=== PATIENT | female | born 1945 | race American Indian/Alaskan Native ===

== ENCOUNTER 2017-05-26 12:22 | Inpatient (IN) | payer MEDICARE ==
[2017-05-26] MEDS ORDERED: APRESOLINE IV ONE (14:15)
--- NOTE | 2017-05-26 19:15 | History and Physical Report ---
History of Present Illness Date of admission: 05/26/17 13:04 Chief complaint: My bleed pressure is high but i feel fine History of present illness: 71 YO Female with HTN, Hypothyroidism, OA admitted directly to hospitalist service at the request of Dr. Bingham. Pt seen and evaluated by PCP in his office and found keshav have hypertensive emergency and instructed to f/u at [facility]. Pt seen and evaluated upon arrival and found to have systolic BP of 257/93. Pt denies fever, chills, CP, Palpitations, NINO, falls, trauma, medication noncompliance, BRBPR, unintentional weight loss, night sweats. Past History Past Medical History: arthritis, hypertension, hypothyroidism Past Surgical History: Other (Uterine fibroid surgery) Social history: single. denies: smoking, alcohol abuse, prescription drug abuse , IV drug use Family history: diabetes, hypertension Medications and Allergies Allergies Allergy/AdvReac Type Severity Reaction Status Date / Time acetaminophen [From Tylenol] AdvReac Swelling,RA Unverified 05/26/17 13:07 Home Medications Medication Instructions Recorded Confirmed Last Taken Type Aspirin EC [Aspirin Enteric Coated 81 mg PO QDAY 05/26/17 05/26/17 05/25/17 18: 00 History TAB] Carvedilol [Coreg] 12.5 mg PO BID 05/26/17 05/26/17 05/25/17 18:00 History 12.5 mg Losartan [Cozaar] 100 mg PO QDAY 05/26/17 05/26/17 05/25/17 18:00 History 100 mg Active Meds: Active Medications Carvedilol (Coreg) 12.5 mg PO BID [facility] Review of Systems Constitutional: no weight loss, no weight gain, no fever, no chills Ears, nose, mouth and throat: no ear pain, no ear discharge, no tinnitis, no decreased hearing, no nose pain, no nasal congestion, no nasal discharge Breasts: no change in shape, no swelling, no mass Cardiovascular: no chest pain, no orthopnea, no palpitations, no rapid/ irregular heart beat, no edema, no syncope Respiratory: no cough, no cough with sputum, no excessive sputum, no hemoptysis , no shortness of breath Gastrointestinal: no nausea, no vomiting, no diarrhea, no constipation, no change in bowel habits, no hematemesis Genitourinary Female: no dysmenorrhea, no pelvic pain, no flank pain, no menorrhagia, no dysuria, no urinary frequency, no urgency Rectal: no pain, no incontinence, no bleeding Musculoskeletal: no neck stiffness, no neck pain, no shooting arm pain, no arm numbness/tingling, no low back pain Integumentary: no rash, no pruritis, no redness, no sores, no wounds, no jaundice Neurological: no head injury, no weakness, no parathesias, no numbness, no tingling, no seizures, no syncope Psychiatric: no anxiety, no memory loss, no change in sleep habits, no sleep disturbances, no insomnia, no hypersomnia Endocrine: no cold intolerance, no heat intolerance, no polyphagia, no excessive thirst, no polydipsia, no polyuria Hematologic/Lymphatic: no easy bruising, no easy bleeding Allergic/Immunologic: no urticaria, no allergic rhinitis, no wheezing Exam - Constitutional Vitals: Temp Pulse Resp BP Pulse Ox 98.8 F 75 16 216/86 100 05/26/17 13:37 05/26/17 15:53 05/26/17 13:37 05/26/17 15:53 05/26/17 14:37 General appearance: Present: mild distress - EENT Eyes: Present: PERRL ENT: hearing intact, clear oral mucosa - Neck Neck: Present: supple, normal ROM - Respiratory Respiratory effort: normal Respiratory: bilateral: CTA - Cardiovascular Heart Sounds: Present: S1 & S2. Absent: rub, click - Extremities Extremities: pulses symmetrical, No edema Peripheral Pulses: within normal limits - Abdominal General gastrointestinal: Present: soft, non-tender, non-distended, normal bowel sounds Female genitourinary: Present: normal - Integumentary Integumentary: Present: clear, warm, dry - Musculoskeletal Musculoskeletal: generalized weakness - Psychiatric Psychiatric: appropriate mood/affect, intact judgment & insight - Neurologic Neurologic: CNII-XII intact, moves all extremities Assessment and Plan - Patient Problems (1) Hypertensive emergency without congestive heart failure Current Visit: Yes Status: Acute Plan to address problem: Monitor bp q shift, hydralazine therapy, resume antihypertensive therapy, Goal systolic overnight systolic between 200-210. (2) Hypothyroid Current Visit: Yes Status: Acute Qualifiers: Hypothyroidism type: H Plan to address problem: continue current therapy, thyroid panel, supportive care. (3) Arthritis Current Visit: Yes Status: Acute Plan to address problem: supportive care, (4) DVT prophylaxis Current Visit: Yes Status: Acute
[2017-05-26] MEDS: COREG PO SCH (21:41)
[2017-05-27] MEDS ORDERED: DULCOLAX PR PRN (02:46)
[2017-05-27] MEDS ORDERED: PROVENTIL IH PRN (02:46)
[2017-05-27] MEDS ORDERED: ZOFRAN IV PRN (02:46)
[2017-05-27] MEDS ORDERED: MILK OF MAGNESIA PO PRN (02:46)
[2017-05-27] MEDS ORDERED: TYLENOL PO PRN (02:46)
[2017-05-27] MEDS: COREG PO SCH ×2 (09:59→17:55)
[2017-05-27] MEDS: PEPCID PO SCH ×2 (09:59→21:23)
[2017-05-27] MEDS ORDERED: APRESOLINE IV ONE (13:20)
--- NOTE | 2017-05-27 15:04 | Progress Note ---
Assessment and Plan - Patient Problems (1) Hypertensive emergency Current Visit: Yes Status: Acute Plan to address problem: Added Hydralazine 50 q 8 and Norvasc 10 mg po qd.BPn still high (2) Hypokalemia Current Visit: Yes Status: Acute Plan to address problem: K of 2.9 supplemented (3) DVT prophylaxis Current Visit: Yes Status: Acute Plan to address problem: On Lovenox 40 sq q24 Subjective Date of service: 05/27/17 Principal diagnosis: HTN emergency Interval history: Symptomaticsllly better.BP persists in Higher range of 200/97 mm Hg Objective - Constitutional Vitals: Vital Signs - 12hr 05/27/17 05/27/17 05/27/17 05:00 08:20 08:48 Temperature 98.6 F 97.9 F Pulse Rate 66 62 Respiratory 18 18 Rate Blood Pressure Blood Pressure 210/57 202/59 [Right] O2 Sat by Pulse 100 99 97 Oximetry 05/27/17 05/27/17 05/27/17 09:59 10:00 13:39 Temperature Pulse Rate 62 51 L Respiratory 18 Rate Blood Pressure 202/59 211/80 Blood Pressure [Right] O2 Sat by Pulse 98 Oximetry General appearance: Present: no acute distress, well-nourished - EENT Eyes: PERRL, EOM intact ENT: hearing intact, clear oral mucosa Ears: bilateral: normal - Neck Neck: supple, normal ROM - Respiratory Respiratory effort: normal Respiratory: bilateral: CTA - Breasts Breasts: normal - Cardiovascular Heart rate: 76 Rhythm: regular Heart Sounds: Present: S1 & S2. Absent: gallop, rub Extremities: pulses intact, No edema, normal color, Full ROM - Gastrointestinal General gastrointestinal: Present: soft, non-tender, non-distended, normal bowel sounds Rectal Exam: deferred - Genitourinary Female genitourinary: normal - Integumentary Integumentary: clear, warm, dry - Musculoskeletal Musculoskeletal: 1, strength equal bilaterally - Neurologic Neurologic: moves all extremities - Psychiatric Psychiatric: memory intact, appropriate mood/affect, intact judgment & insight - Allied health notes Allied health notes reviewed: nursing, case management - Labs CBC & Chem 7: 05/27/17 15:27 05/28/17 04:07
[2017-05-27] MEDS ORDERED: NON-FORMULARY (Losartan [Cozaar] 100 MG) PO SCH (15:15)
[2017-05-27 16:33] LABS: Basophils % (Auto) 1.1 % (0.0-1.8); Eosinophils % (Auto) 2.9 % (0.0-4.3); Hematocrit 39.5 % (30.3-42.9); Hemoglobin 13.2 gm/dl (10.1-14.3); Mean Corpuscular HGB Conc 33 % (30-34); Mean Corpuscular Hemoglobin 31 pg (28-32); Mean Corpuscular Volume 94 fl (79-97); Platelet Count 301 K/mm3 (140-440); Red Blood Count 4.21 M/mm3 (3.65-5.03); Red Cell Distribution Width 14.9 % (13.2-15.2); White Blood Count 4.6 K/mm3 (4.5-11.0)
[2017-05-27 16:52] LABS: Alanine Aminotransferase 19 units/L (7-56); Albumin 4.2 g/dL (3.9-5); Albumin/Globulin Ratio 1.1 %; Alkaline Phosphatase 92 units/L (35-129); Anion Gap 19 mmol/L; BUN/Creatinine Ratio 24.44; Blood Urea Nitrogen 22 mg/dL (7-17); Calcium 9.2 mg/dL (8.4-10.2); Carbon Dioxide 24 mmol/L (22-30); Chloride 102.3 mmol/L (98-107); Glucose 125 mg/dL (65-100); Sodium 142 mmol/L (137-145); Total Protein 7.9 g/dL (6.3-8.2)
[2017-05-27 16:55] LABS: Potassium 2.9 mmol/L (3.6-5.0)
[2017-05-27] MEDS: APRESOLINE PO SCH ×2 (17:08→23:46)
[2017-05-27] MEDS: NORVASC PO SCH (17:09)
[2017-05-27] MEDS: HALFPRIN EC PO SCH (17:10)
[2017-05-27] MEDS: COZAAR PO SCH (17:10)
[2017-05-27] MEDS: K-DUR PO SCH ×2 (19:54→23:57)
[2017-05-28] MEDS: K-DUR PO SCH (03:36)
[2017-05-28 05:06] LABS: Anion Gap 17 mmol/L; BUN/Creatinine Ratio 18.88; Blood Urea Nitrogen 17 mg/dL (7-17); Calcium 8.7 mg/dL (8.4-10.2); Carbon Dioxide 23 mmol/L (22-30); Chloride 103.8 mmol/L (98-107); Glucose 111 mg/dL (65-100); Potassium 3.7 mmol/L (3.6-5.0); Sodium 140 mmol/L (137-145)
[2017-05-28] MEDS: APRESOLINE PO SCH ×2 (05:45→13:57)
[2017-05-28] MEDS: NORVASC PO SCH (09:47)
[2017-05-28] MEDS: PEPCID PO SCH (09:50)
[2017-05-28] MEDS: HALFPRIN EC PO SCH (09:50)
[2017-05-28] MEDS: COZAAR PO SCH (09:50)
[2017-05-28] MEDS: COREG PO SCH (10:00)
--- NOTE | 2017-05-28 11:59 | Discharge Summary ---
Providers - Providers Date of Admission: 05/26/17 13:04 Attending physician: OSORIO RODRIGUEZ MD Primary care physician: LEXIE BINGHAM Hospitalization Hospital course: 71 YO Female with HTN, Hypothyroidism, OA admitted directly to hospitalist service at the request of Dr. Bingham. Pt seen and evaluated by PCP in his office and found to have hypertensive emergency and instructed to f/u at [facility]. She was admitted for hypertensive urgency, her blood pressure medications were optimized , she'll also noted to have low potassium for which it was repleted. She clinically improved and was discharged home Discharge diagnoses Hypertensive urgency Hypokalemia Disposition: DC-01 TO HOME OR SELFCARE Time spent for discharge: 33 minutes Core Measure Documentation - Palliative Care Palliative Care/ Comfort Measures: Not Applicable - Core Measures Any of the following diagnoses?: none Exam - Constitutional Vitals: Temp Pulse Resp BP Pulse Ox 98.7 F 90 18 134/62 100 05/28/17 09:02 05/28/17 09:50 05/28/17 09:02 05/28/17 09:50 05/28/17 09:02 General appearance: Present: no acute distress, well-nourished - EENT Eyes: Present: PERRL ENT: hearing intact, clear oral mucosa - Neck Neck: Present: supple, normal ROM - Respiratory Respiratory effort: normal Respiratory: bilateral: CTA - Cardiovascular Heart Sounds: Present: S1 & S2. Absent: rub, click - Extremities Extremities: pulses symmetrical, No edema Peripheral Pulses: within normal limits - Abdominal General gastrointestinal: Present: soft, non-tender, non-distended, normal bowel sounds Female genitourinary: Present: normal - Integumentary Integumentary: Present: clear, warm, dry - Musculoskeletal Musculoskeletal: gait normal, strength equal bilaterally - Psychiatric Psychiatric: appropriate mood/affect, intact judgment & insight - Neurologic Neurologic: CNII-XII intact, moves all extremities Plan Follow up with: LEXIE BINGHAM MD [Primary Care Provider] - 7 Days Prescriptions: amLODIPine [Norvasc] 10 mg PO QDAY #30 tablet Aspirin EC [Aspirin Enteric Coated TAB] 81 mg PO QDAY #30 tablet Carvedilol [Coreg] 12.5 mg PO BID #60 tablet hydrALAZINE [Apresoline TAB] 50 mg PO Q8HR 30 Days Losartan [Cozaar] 100 mg PO QDAY #30 tablet
[2017-05-28 13:58] VITALS: BP 160/74
== END 2017-05-28 13:10 | disposition home or self-care (01) | DRG 305 ==
LOC: UNDOADMIN 12:22 → CC2 12:22
PROVIDERS: ADMIT Internal Medicine; ATTEND Internal Medicine
DX: I16.0 Hypertensive urgency (principal); E03.9 Hypothyroidism, unspecified; M19.90 Unspecified osteoarthritis, unspecified site; Z88.8 Allergy status to other drugs, medicaments and biological substances; I10 Essential (primary) hypertension; Z83.3 Family history of diabetes mellitus; Z82.49 Family history of ischemic heart disease and other diseases of the circulatory system; E87.6 Hypokalemia
CPT/HCPCS: 36415; 80048; 80053; 84134; 84439; 84443; 85025; J0360

== ENCOUNTER 2017-08-16 13:36 | Inpatient (IN) | payer MEDICARE ==
--- NOTE | 2017-08-16 14:49 | Cat Scan Report ---
CT HEAD WITHOUT CONTRAST: HISTORY: Stroke. TECHNIQUE: Sequential CT images without contrast. FINDINGS: Moderate hypoattenuation is present throughout the white matter of both cerebral hemispheres which is most consistent with chronic microvascular ischemic disease. Small areas of acute ischemia cannot be excluded. There is no evidence for hemorrhage, mass or extra-axial fluid collection. Chronic lacunar infarcts in the left basal ganglia are stable since 05/31/17. Ventricular size remains within normal limits. The visualized sinuses and mastoid air cells are well-aerated. IMPRESSION: Moderate nonspecific chronic white matter changes. No acute intracranial process is appreciated. If further evaluation is needed cava MRI could be obtained.
[2017-08-16 14:56] LABS: Basophils % (Auto) 0.8 % (0.0-1.8); Eosinophils % (Auto) 2.4 % (0.0-4.3); Hematocrit 29.5 % (30.3-42.9); Hemoglobin 9.8 gm/dl (10.1-14.3); Mean Corpuscular HGB Conc 33 % (30-34); Mean Corpuscular Hemoglobin 30 pg (28-32); Mean Corpuscular Volume 90 fl (79-97); Platelet Count 326 K/mm3 (140-440); Red Blood Count 3.26 M/mm3 (3.65-5.03); Red Cell Distribution Width 15.6 % (13.2-15.2)
[2017-08-16 15:09] LABS: Calcium 8.9 mg/dL (8.4-10.2); Chloride 106.8 mmol/L (98-107)
[2017-08-16 15:10] LABS: INR 1.01 (0.87-1.13)
[2017-08-16 15:11] LABS: Partial Thromboplastin Time 29.2 Sec. (24.2-36.6)
--- NOTE | 2017-08-16 17:40 | Emergency Department Report ---
ED General Adult HPI - General Chief complaint: Weakness Stated complaint: POSSIBLE CVA,WEAKNESS Time Seen by Provider: 08/16/17 17:23 Source: patient, family, EMS (ems notes not available at time of chart dictation), RN notes reviewed, old records reviewed Mode of arrival: Stretcher Limitations: Physical Limitation - History of Present Illness Initial comments: This is a 71-year-old female whom I have evaluated in the past. Her primary care doctor is Dr. Bingham Patient has a past medical history of heart disease status post cardiac bypass, renal insufficiency, stroke with some residual speech deficits, high cholesterol. The patient is brought to the hospital by EMS along with her sister. As per verbal report from the patient's sister, patient was eating earlier on today, and then "spaced out." She reports that the patient got sweaty, diaphoretic and clammy, and that she "stared off into space", and that the patient had worsening slurred speech than baseline. This lasted for a few seconds and then reports resolved. The patient has no complaints at this time. The patient's sister corroborates that the patient is back to baseline. -: Sudden Severity scale (0 -10): 0 Consistency: now resolved Improves with: none Worsens with: none Associated Symptoms: confusion, diaphoresis, weakness - Related Data Home Medications Medication Instructions Recorded Confirmed Last Taken Donepezil HCl 10 mg PO QHS 08/16/17 08/16/17 1 Day Ago ~08/15/17 Previous Rx's Medication Instructions Recorded Last Taken Type Aspirin EC [Aspirin Enteric Coated 81 mg PO QDAY #30 tablet 05/28/17 05/31/17 07 :00 Rx TAB] Carvedilol [Coreg] 12.5 mg PO BID #60 tablet 05/28/17 05/31/17 07:00 Rx Losartan [Cozaar] 100 mg PO QDAY #30 tablet 05/28/17 05/31/17 07:00 Rx amLODIPine [Norvasc] 10 mg PO QDAY #30 tablet 05/28/17 05/31/17 07:00 Rx hydrALAZINE [Apresoline TAB] 50 mg PO Q8HR 30 Days tablet 05/28/17 05/31/17 07: 00 Rx AtorvaSTATin [Lipitor] 80 mg PO QHS #30 tab 06/02/17 Unknown Rx Allergies Allergy/AdvReac Type Severity Reaction Status Date / Time acetaminophen [From Tylenol] AdvReac Swelling,RA Verified 05/27/17 03:03 ED Review of Systems ROS: Stated complaint: POSSIBLE CVA,WEAKNESS Other details as noted in HPI Constitutional: diaphoresis, malaise ENT: denies: epistaxis Respiratory: denies: cough Cardiovascular: denies: chest pain Gastrointestinal: denies: abdominal pain Genitourinary: as per HPI Musculoskeletal: as per HPI Skin: as per HPI Neurological: weakness, confusion Psychiatric: as per HPI ED Past Medical Hx - Past Medical History Previous Medical History?: Yes Hx Hypertension: Yes (1996) Hx CVA: Yes (residual speech/swallowing and walking difficulties) - Surgical History Past Surgical History?: Yes Hx Open Heart Surgery: Yes (CABG @ [facility]) Additional Surgical History: hysterectomy - Social History Smoking Status: Never Smoker Substance Use Type: None - Medications Home Medications: Home Medications Medication Instructions Recorded Confirmed Last Taken Type Aspirin EC [Aspirin Enteric Coated 81 mg PO QDAY #30 tablet 05/28/17 05/31/17 07:00 Rx TAB] Carvedilol [Coreg] 12.5 mg PO BID #60 tablet 05/28/17 05/31/17 05/31/17 07:00 Rx Losartan [Cozaar] 100 mg PO QDAY #30 tablet 05/28/17 05/31/17 05/31/17 07:00 Rx amLODIPine [Norvasc] 10 mg PO QDAY #30 tablet 05/28/17 05/31/17 05/31/17 07:00 Rx hydrALAZINE [Apresoline TAB] 50 mg PO Q8HR 30 Days tablet 05/28/17 05/31/1711/12 07:00 Rx AtorvaSTATin [Lipitor] 80 mg PO QHS #30 tab 06/02/17 Unknown Rx Donepezil HCl 10 mg PO QHS 08/16/17 08/16/17 1 Day Ago History ~08/15/17 ED Physical Exam - General Limitations: Physical Limitation, Other (patient is a poor historian) General appearance: alert, in no apparent distress - Head Head exam: Present: atraumatic, normocephalic - Eye Eye exam: Present: normal appearance, EOMI. Absent: nystagmus - ENT ENT exam: Present: normal exam, normal orophraynx, mucous membranes moist, normal external ear exam - Neck Neck exam: Present: normal inspection, full ROM. Absent: tenderness, meningismus - Respiratory Respiratory exam: Present: normal lung sounds bilaterally. Absent: respiratory distress - Cardiovascular Cardiovascular Exam: Present: regular rate, normal rhythm, normal heart sounds. Absent: systolic murmur, diastolic murmur, rubs, gallop - GI/Abdominal GI/Abdominal exam: Present: soft, normal bowel sounds. Absent: distended, tenderness, guarding, rebound, rigid, pulsatile mass - Rectal Rectal exam: Present: normal inspection, normal rectal tone, heme (-) stool ( Brown stool, guaiac negative) - Extremities Exam Extremities exam: Present: normal inspection, full ROM, normal capillary refill. Absent: pedal edema, joint swelling, calf tenderness - Back Exam Back exam: Present: normal inspection, full ROM. Absent: tenderness, CVA tenderness (R), paraspinal tenderness, vertebral tenderness - Neurological Exam Neurological exam: Present: alert (patient currently has slurred speech, her sister endorses that this is her baseline.), CN II-XII intact, normal gait, other (Extraocular movements intact. Tongue midline. No facial droop. Facial sensation intact to light touch in the V1, V2, V3 distribution bilaterally. 5 and 5 strength in 4 extremities.. Sensation is intact to light touch in 4 extremities.). Absent: oriented X3 (the patient is alert to name, month, does not know the year, she is able to recognize her sister by name), motor sensory deficit - Psychiatric Psychiatric exam: Present: normal affect, normal mood - Skin Skin exam: Present: warm, dry, intact, normal color. Absent: rash ED Course Vital Signs 08/16/17 08/16/17 08/16/17 13:41 14:17 14:28 Temperature 97.8 F Pulse Rate 60 76 Respiratory 16 11 L Rate Blood Pressure 119/69 139/57 Blood Pressure 139/57 [Right] O2 Sat by Pulse 99 100 100 Oximetry 08/16/17 08/16/17 08/16/17 14:30 14:46 15:00 Temperature Pulse Rate 79 77 78 Respiratory 13 12 16 Rate Blood Pressure 139/57 139/57 139/57 Blood Pressure [Right] O2 Sat by Pulse 100 100 100 Oximetry 08/16/17 08/16/17 08/16/17 15:16 15:30 15:46 Temperature Pulse Rate 78 82 79 Respiratory 17 13 13 Rate Blood Pressure 139/57 139/57 139/57 Blood Pressure [Right] O2 Sat by Pulse 100 100 100 Oximetry 08/16/17 08/16/17 08/16/17 16:00 16:16 16:30 Temperature Pulse Rate 84 81 81 Respiratory 12 9 L 12 Rate Blood Pressure 139/57 139/57 139/57 Blood Pressure [Right] O2 Sat by Pulse 100 100 100 Oximetry 08/16/17 08/16/17 08/16/17 16:46 17:00 17:16 Temperature Pulse Rate 80 76 78 Respiratory 12 16 11 L Rate Blood Pressure 139/57 139/57 134/66 Blood Pressure [Right] O2 Sat by Pulse 100 100 100 Oximetry 08/16/17 08/16/17 08/16/17 17:30 17:53 18:01 Temperature Pulse Rate 82 75 Respiratory 24 14 16 Rate Blood Pressure 134/66 139/57 142/55 Blood Pressure [Right] O2 Sat by Pulse 99 100 100 Oximetry 08/16/17 08/16/17 08/16/17 18:15 18:31 18:45 Temperature Pulse Rate 83 87 80 Respiratory 18 13 18 Rate Blood Pressure 134/66 134/66 134/66 Blood Pressure [Right] O2 Sat by Pulse 99 98 100 Oximetry 08/16/17 08/16/17 08/16/17 19:00 19:15 19:31 Temperature Pulse Rate 73 74 75 Respiratory 19 13 17 Rate Blood Pressure 132/66 132/66 132/66 Blood Pressure [Right] O2 Sat by Pulse 99 99 100 Oximetry 08/16/17 08/16/17 08/16/17 19:45 20:00 20:15 Temperature Pulse Rate 79 74 80 Respiratory 16 18 12 Rate Blood Pressure 132/66 138/60 138/60 Blood Pressure [Right] O2 Sat by Pulse 100 97 97 Oximetry 08/16/17 08/16/17 08/16/17 20:27 20:31 20:45 Temperature 98.6 F Pulse Rate 74 74 73 Respiratory 16 9 L 19 Rate Blood Pressure 138/60 138/60 Blood Pressure 138/60 [Right] O2 Sat by Pulse 99 99 99 Oximetry 08/16/17 08/16/17 08/16/17 21:00 21:15 21:31 Temperature Pulse Rate 64 71 57 L Respiratory 20 18 18 Rate Blood Pressure 123/54 123/54 123/54 Blood Pressure [Right] O2 Sat by Pulse 97 100 99 Oximetry - Reevaluation(s) Reevaluation #1: 08/16/17 18:23 Differential diagnosis, including but not limited to: Transient ischemic attack , pneumonia, urinary tract infection, acute coronary syndrome Assessment and plan: 71-year-old female, multiple vascular risk factors, had a cardiac catheterization at this hospital which showed critical lesions, history of CABG recently, history of recent stroke with residual dysarthria, now back to baseline, NIH score of 1 for poor sensorium, not a TPA candidate, with probable transient ischemic attack. Patient is afebrile with reassuring vital signs, laboratory studies appear to be at baseline, patient is chest pain-free, x-ray of the chest is unremarkable, urinalysis is pending, patient has had a slight decline in hemoglobin and hematocrit over the past few months, there is no hematemesis, there is no bright red blood per rectum, and the patient is guaiac-negative from below. Patient will require admission for evaluation for high risk transient ischemic attack. Reevaluation #2: 08/16/17 19:31 Urinalysis suggests urinary tract infection. Antibiotics ordered. Reevaluation #3: 08/16/17 21:35 Patient ready take aspirin this morning. Case presented to the Hospital physician, Dr. Beltrán, she accepts patient for the patient to the medical service. ED Medical Decision Making - Lab Data Result diagrams: 08/16/17 14:41 08/16/17 14:41 - Radiology Data Radiology results: report reviewed, image reviewed interpreted by me: X-ray the chest, interpreted by me: No acute disease, status post median sternotomy Noncontrast CT scan of the brain shows no acute findings, chronic findings noted. Critical care attestation.: If time is entered above; I have spent that time in minutes in the direct care of this critically ill patient, excluding procedure time. ED Disposition Clinical Impression: TIA (transient ischemic attack) Disposition: OP ADMIT IP TO THIS HOSP Is pt being admited?: Yes Does the pt Need Aspirin: Yes Condition: Good
[2017-08-16] MEDS ORDERED: BABY ASPIRIN PO ONE (18:25)
[2017-08-16 18:44] LABS: Bacteria,Urine 2+ /HPF (Negative); Bilirubin,Urine NEG (Negative); Blood,Urine NEG (Negative); Ketones,Urine TR mg/dL (Negative); Leukocyte Esterase,Urine SM (Negative); Mucus,Urine FEW /HPF; Nitrite,Urine POS (Negative); Protein,Urine <15 mg/dL mg/dL (Negative); Urobilinogen,Urine < 2.0 mg/dL (<2.0)
[2017-08-16] MEDS ORDERED: MACROBID PO ONE (19:32)
--- NOTE | 2017-08-16 20:31 | XRay Report ---
FINAL REPORT PROCEDURE: XR CHEST 1V AP TECHNIQUE: Chest radiograph anteroposterior view. CPT 22595 HISTORY: altered mental status, diaphoresis, transient isch COMPARISON: No prior studies are available for comparison. FINDINGS: Heart: Normal. Mediastinum/Vessels: Sternal sutures and surgical clips are identified consistent with previous CABG. Lungs/Pleural space: Normal. Bony thorax: No acute osseous abnormality. Life support devices: None. IMPRESSION: No acute cardiopulmonary abnormality.
[2017-08-16] MEDS ORDERED: REGLAN PO PRN (22:27)
[2017-08-16] MEDS ORDERED: ZOFRAN IV PRN (22:27)
[2017-08-16] MEDS ORDERED: MILK OF MAGNESIA PO PRN (22:27)
[2017-08-16] MEDS ORDERED: DULCOLAX PR PRN (22:27)
[2017-08-16] MEDS ORDERED: SODIUM CHLORIDE FLUSH SYRINGE 10 ML IV PRN (22:27)
[2017-08-16] MEDS ORDERED: PHENERGAN PR PRN (22:27)
--- NOTE | 2017-08-16 22:31 | History and Physical Report ---
History of Present Illness Date of examination: 08/16/17 History of present illness: 71-year-old lady with a history of hypertension, hyperlipidemia, CVA, coronary artery disease was brought to the emergency room because she developed slurred speech and became very diaphoretic. The emergency room physician. Patient is unable to give a history, unable to reach family, review of system unobtainable. Old records reviewed PAST MEDICAL HISTORY:hypertension, hyperlipidemia, CVA PAST SURGICAL HISTORY: Hysterectomy, CABG FAMILY HISTORY: Hypertension SOCIAL HISTORY: No alcohol, tobacco, drugs Medications and Allergies Allergies Allergy/AdvReac Type Severity Reaction Status Date / Time acetaminophen [From Tylenol] AdvReac Swelling,RA Verified 05/27/17 03:03 Home Medications Medication Instructions Recorded Confirmed Last Taken Type Aspirin EC [Aspirin Enteric Coated 81 mg PO QDAY #30 tablet 05/28/17 05/31/17 07:00 Rx TAB] Carvedilol [Coreg] 12.5 mg PO BID #60 tablet 05/28/17 05/31/17 05/31/17 07:00 Rx Losartan [Cozaar] 100 mg PO QDAY #30 tablet 05/28/17 05/31/17 05/31/17 07:00 Rx amLODIPine [Norvasc] 10 mg PO QDAY #30 tablet 05/28/17 05/31/17 05/31/17 07:00 Rx hydrALAZINE [Apresoline TAB] 50 mg PO Q8HR 30 Days tablet 05/28/17 05/31/1711/12 07:00 Rx AtorvaSTATin [Lipitor] 80 mg PO QHS #30 tab 06/02/17 Unknown Rx Donepezil HCl 10 mg PO QHS 08/16/17 08/16/17 1 Day Ago History ~08/15/17 Exam - Physical Exam Narrative exam: Gen. appearance: Patient lying in bed in no acute distress HEENT: Normocephalic/atraumatic, pupils equal round reactive to light, extra occular movement intact, no scleral icterus, no JVD or thyromegaly or nodule, neck is supple, mucous membrane moist, no erythema or exudate Heart: S1-S2, regular rate and rhythm Lungs: Clear to auscultation bilateral breathing comfortable Abdomen: Positive bowel sounds, nontender, nondistended, no organomegaly Extremities: No edema, cyanosis, clubbing Neuro:: difficult to asess, speech clear Skin: No rash, nodules, warm dry - Constitutional Vitals: Temp Pulse Resp BP Pulse Ox 98.6 F 57 L 18 123/54 99 08/16/17 20:27 08/16/17 21:31 08/16/17 21:31 08/16/17 21:31 08/16/17 21:31 Results - Labs CBC & Chem 7: 08/16/17 14:41 08/16/17 14:41 Labs: Abnormal lab results 08/16/17 08/16/17 08/16/17 Range/Units 14:28 14:41 14:41 WBC 4.0 L (4.5-11.0) K/mm3 RBC 3.26 L (3.65-5.03) M/mm3 Hgb 9.8 L (10.1-14.3) gm/dl Hct 29.5 L (30.3-42.9) % RDW 15.6 H (13.2-15.2) % Lymph # 0.8 L (1.2-5.4) K/mm3 Seg Neutrophils % 72.3 H (40.0-70.0) % Carbon Dioxide 21 L (22-30) mmol/L Creatinine 1.5 H (0.7-1.2) mg/dL Glucose 115 H (65-100) mg/dL POC Glucose 117 H (70-105) Urine WBC (Auto) (0.0-6.0) /HPF 08/16/17 Range/Units 17:54 WBC (4.5-11.0) K/mm3 RBC (3.65-5.03) M/mm3 Hgb (10.1-14.3) gm/dl Hct (30.3-42.9) % RDW (13.2-15.2) % Lymph # (1.2-5.4) K/mm3 Seg Neutrophils % (40.0-70.0) % Carbon Dioxide (22-30) mmol/L Creatinine (0.7-1.2) mg/dL Glucose (65-100) mg/dL POC Glucose (70-105) Urine WBC (Auto) 10.0 H (0.0-6.0) /HPF - Imaging and Cardiology EKG: image reviewed Chest x-ray: image reviewed CT Scan - head: report reviewed Assessment and Plan Assessment TIA UTI Acute renal insufficiency Hypertension Hyperlipidemia History of CVA Plan Admit to medicine Obtain MRI, carotid Doppler, echo Do neurology check, swallow screen [employer] neurology, physical and speech therapy Start IV fluid, Plavix, due to prophylaxis Continued appropriate outpatient medications DVT prophylaxis
[2017-08-17] MEDS ORDERED: NACL 0.45% 1000 ML 1,000 ML IV SCH (01:00)
[2017-08-17] MEDS: cefTRIAXone 1 GM in NACL 0.9% 20 ML IV SCH ×2 (02:37→10:00)
[2017-08-17] MEDS: LOVENOX SUB-Q SCH (10:00)
[2017-08-17] MEDS ORDERED: PLAVIX PO SCH (10:00)
[2017-08-17 10:50] LABS: Calcium 9.2 mg/dL (8.4-10.2); Chloride 103.8 mmol/L (98-107); Potassium 3.7 mmol/L (3.6-5.0)
--- NOTE | 2017-08-17 12:21 | Magnetic Resonance Report ---
MRI BRAIN WITHOUT CONTRAST: 08/16/17 22:27:00 CLINICAL: Stroke. COMPARISON: CT head 08/16/17 and 05/31/17 TECHNIQUE: Axial diffusion, T1, T2, FLAIR, gradient echo T2*, and sagittal T1 sequences on a 1.5 Charley magnet. FINDINGS: The ventricles and sulci are normal for age. A single tiny focus of restricted diffusion in the left frontal lobe white matter. No other restricted diffusion. However, several areas of abnormal signal on the diffusion sequence. Bilateral parietal white matter areas of increased signal on diffusion without corresponding signal loss on the ADC map. The largest is in the right frontal white matter and measures 2.8 x 1.5 cm. In the center of this lesion there is multifocal hypointense signal on diffusion and FLAIR. These areas are hyperintense on T2. A similar smaller lesion in the left parietal lobe white matter. Heterogeneous hyperintense signal in the splenium of the corpus callosum on diffusion, T2 and FLAIR sequences. Extensive bilateral air periventricular white matter hyperintensities on FLAIR with tiny areas of hyperintense signal on FLAIR and hyperintense T2 signal. This is consistent with numerous tiny lacunar infarcts in the periventricular white matter. No mass or mass effect. No hemorrhage, edema or extra-axial collection. Normal pituitary and optic chiasm. The brainstem and cerebellum are normal. Intact vascular flow voids. Normal sinuses. The orbits, and soft tissues are normal. Normal calvarium and skull base. IMPRESSION: 1. An acute or subacute tiny nonhemorrhagic left frontal lobe white matter lacunar infarct. 2. Bilateral multifocal white matter late subacute nonhemorrhagic infarcts along with numerous tiny chronic lacunar infarcts versus bilateral white matter lesions of MS. 3. Probable late subacute infarcts of the splenium of the corpus callosum. However, other etiologies for abnormal signal in the corpus callosum such as MS should be excluded. 4. Extensive bilateral chronic white matter microangiopathy.
--- NOTE | 2017-08-17 12:26 | Consultation ---
History of Present Illness Consult date: 08/17/17 Requesting physician: DEN PÉREZ Reason for Consult: Transient ischemic attack History of present illness: This is a 71 year old female who presented to ER yesterday because of a spell of slurred speech, diaphoresis, and syncope, by patient's report. She has a history of hypertension, coronary artery disease, hyperllipidemia. Takes her medications regularly. Takes daily aspirin. Thus far an MRI scan has revealed an acute lacunar infarct in the left frontal lobe. There is also a great deal of small vessel disease. The patient has been placed on Plavix in addition to ASA. This morning she states that she feels fine. Denies weakness or numbness, bladder or bowel problems. Past History Past Medical History: CAD, hypertension, hyperlipidemia Past Surgical History: CABG, hysterectomy Social history: lives with family. denies: smoking, alcohol abuse Family history: CAD, hypertension, stroke Medications and Allergies Allergies Allergy/AdvReac Type Severity Reaction Status Date / Time acetaminophen [From Tylenol] AdvReac Swelling,RA Verified 05/27/17 03:03 Home Medications Medication Instructions Recorded Confirmed Last Taken Type Carvedilol [Coreg] 12.5 mg PO BID #60 tablet 05/28/17 08/17/17 08/16/17 Rx Donepezil HCl 10 mg PO QHS 08/16/17 08/17/17 08/15/17 History Aspirin EC [Aspirin Enteric Coated 325 mg PO QDAY 08/17/17 08/17/17 08/16/17 History TAB] AtorvaSTATin [Lipitor] 20 mg PO QHS 08/17/17 08/17/17 08/15/17 History Famotidine [Pepcid] 20 tab PO DAILY 08/17/17 08/17/17 08/16/17 History Losartan [Cozaar] 50 mg PO QDAY 08/17/17 08/17/17 08/16/17 History Plavix 75 mg PO DAILY 08/17/17 08/17/17 08/16/17 History amLODIPine [Norvasc] 5 mg PO QDAY 08/17/17 08/17/17 08/16/17 History hydrALAZINE [Apresoline TAB] 50 mg PO BID 08/17/17 08/17/17 08/16/17 History Active Meds: Active Medications Bisacodyl (Dulcolax) 10 mg NE QDAY PRN PRN Reason: Constipation Clopidogrel Bisulfate (Plavix) 75 mg PO DAILY [facility] Enoxaparin Sodium (Lovenox) 40 mg SUB-Q QDAY [facility] Ceftriaxone Sodium 1 gm/ (Sodium Chloride) 20 mls @ 20 mls/10 min IV Q24HR KAYE PRN Reason: Protocol Last Admin: 08/17/17 02:37 Dose: 20 mls/10 min Sodium Chloride (Nacl 0.45% 1000 Ml) 1,000 mls @ 75 mls/hr IV DIRECT KAYE Last Admin: 08/17/17 02:02 Dose: 75 mls/hr Magnesium Hydroxide (Milk Of Magnesia) 30 ml PO Q4H PRN PRN Reason: Constipation Metoclopramide HCl (Reglan) 5 mg PO Q6H PRN PRN Reason: Nausea And Vomiting Ondansetron HCl (Zofran) 4 mg IV Q8H PRN PRN Reason: N/V unrelieved by Reglan Promethazine HCl (Phenergan) 25 mg NE Q6H PRN PRN Reason: Nausea And Vomiting Sodium Chloride (Sodium Chloride Flush Syringe 10 Ml) 10 ml IV PRN PRN PRN Reason: LINE FLUSH Review of Systems Constitutional: no weight loss, no weight gain Ears, nose, mouth and throat: no decreased hearing, no headache Cardiovascular: syncope, no chest pain, no palpitations, no rapid/irregular heart beat, no edema, no shortness of breath Respiratory: no cough, no shortness of breath, no congestion, no pain Gastrointestinal: no abdominal pain, no nausea, no vomiting, no diarrhea, no constipation Genitourinary Female: urinary frequency, urgency Musculoskeletal: no neck stiffness, no neck pain, no low back pain Neurological: numbness, no parathesias, no headaches, no double vision, no loss of vision Physical Examination - Vital Signs Vital Signs: Vital Signs Pulse Resp BP Pulse Ox 60 16 119/69 99 08/16/17 13:41 08/16/17 13:41 08/16/17 13:41 08/16/17 13:41 - Constitutional General appearance: comfortable - EENT EENT: Present: PERRL, mucous membranes moist, hearing intact, vision intact - Respiratory Respiratory: Present: lungs clear, normal breath sounds, no respiratory distress - Cardiovascular Cardiovascular: Present: regular rate, normal S1, normal S2 Extremities: Present: no peripheral edema bilatateraly, no clubbing, cyanosis, chronic venous stasis change - Gastrointestinal Gastrointestinal: Present: soft, non-tender - Neurologic Cranial nerve examination: PERRL, EOMI, V1/V2/V3 grossly intact, face symmetric , tongue midline, intact shoulder shrug Speech examination: intact, other (patient is edentulous, difficult to understand. dysarthria) Sensorimotor examination: intact Motor examination - right side: 5/5: biceps, triceps, wrist flexion, wrist extension, hip flexors, knee extensors, dorsiflexion, toe extension (EHL), plantarflexion Motor examination - left side: 5/5: biceps, triceps, wrist flexion, wrist extension, hip flexors, knee extensors, dorsiflexion, toe extension (EHL), plantarflexion Detailed sensory examination: intact, light touch, pain, other (Patient notes numbness in de guzman aspect of both hands. comes and goes.) Reflex and gait examination: other (small steps) Reflexes: 2+: ankle, bicep, knee, tricep - Psychiatric Psychiatric: Present: mood/affect appropriate, cooperative Results - Laboratory Findings CBC and BMP: 08/16/17 14:41 08/17/17 06:30 Abnormal Lab Findings: Abnormal Labs 08/16/17 08/16/17 08/16/17 14:28 14:41 14:41 WBC 4.0 L RBC 3.26 L Hgb 9.8 L Hct 29.5 L RDW 15.6 H Lymph # 0.8 L Seg Neutrophils % 72.3 H Carbon Dioxide 21 L Creatinine 1.5 H Glucose 115 H POC Glucose 117 H Urine WBC (Auto) 08/16/17 08/17/17 17:54 06:30 WBC RBC Hgb Hct RDW Lymph # Seg Neutrophils % Carbon Dioxide 17 L Creatinine 1.3 H Glucose POC Glucose Urine WBC (Auto) 10.0 H Assessment and Plan This 71 year old female presented with slurred speech, diaphoresis, and syncope. MRI confirms an acute lacune in the left frontal lobe. Carotid ultrasound reveals <50% stenosis, echocardiogram reveals an ejection fraction of 71%. Plavix has been ordered She has no motor or sensory deficits. Plan - Continue the home med, Atorvastatin. Maintain blood pressure control.
--- NOTE | 2017-08-17 14:50 | Progress Note ---
Assessment and Plan Assessment and plan: Acute ischemic stroke left lesion seen on MRI Brain. patient on Aspirin, Plavix Acute kidney injury due to vqasomotor nephropathy. Start iv fluids with 0.45 NS Hypertension. BP stable. Continue anti-hypertensives Hyperlipidemia Dementia. Supportive care. Full code status Low back pain from arthritis. This is chronic. Discussed with Patient and sister at bedside History Interval history: Slurred speech Hospitalist Physical - Physical exam Narrative exam: GEN APPEARANCE : Not in acute distress, lying in bed HEENT: Normocephalic, atraumatic NECK : supple, no JVD LUNGS: Clear to auscultation bilaterally, no rales, no wheeze HEART: S1 and S2 regular, no murmurs, rubs or gallop, ABD: Soft, non tender, non distended, normal bowel sounds EXT: No edema, no clubbing, no cyanosis NEURO: Awake,alert, oriented x 3, no facial asymmetry, dysarthria, moves all extremities Psych: Normal mood - Constitutional Vitals: Temp Pulse Resp BP Pulse Ox 98.2 F 69 18 172/69 96 08/17/17 09:45 08/17/17 09:45 08/17/17 09:45 08/17/17 09:45 08/17/17 09:45 Results - Labs CBC & Chem 7: 08/16/17 14:41 08/18/17 09:21 Labs: Laboratory Last Values WBC 4.0 K/mm3 (4.5-11.0) L 08/16/17 14:41 RBC 3.26 M/mm3 (3.65-5.03) L 08/16/17 14:41 Hgb 9.8 gm/dl (10.1-14.3) L 08/16/17 14:41 Hct 29.5 % (30.3-42.9) L 08/16/17 14:41 MCV 90 fl (79-97) 08/16/17 14:41 MCH 30 pg (28-32) 08/16/17 14:41 MCHC 33 % (30-34) 08/16/17 14:41 RDW 15.6 % (13.2-15.2) H 08/16/17 14:41 Plt Count 326 K/mm3 (140-440) 08/16/17 14:41 Lymph % (Auto) 19.5 % (13.4-35.0) 08/16/17 14:41 Thayer % (Auto) 5.0 % (0.0-7.3) 08/16/17 14:41 Eos % (Auto) 2.4 % (0.0-4.3) 08/16/17 14:41 Baso % (Auto) 0.8 % (0.0-1.8) 08/16/17 14:41 Lymph # 0.8 K/mm3 (1.2-5.4) L 08/16/17 14:41 Thayer # 0.2 K/mm3 (0.0-0.8) 08/16/17 14:41 Eos # 0.1 K/mm3 (0.0-0.4) 08/16/17 14:41 Baso # 0.0 K/mm3 (0.0-0.1) 08/16/17 14:41 Seg Neutrophils % 72.3 % (40.0-70.0) H 08/16/17 14:41 Seg Neutrophils # 2.9 K/mm3 (1.8-7.7) 08/16/17 14:41 PT 13.8 Sec. (12.2-14.9) 08/16/17 14:41 INR 1.01 (0.87-1.13) 08/16/17 14:41 APTT 29.2 Sec. (24.2-36.6) 08/16/17 14:41 Thrombin Time 17.1 Sec. (15.1-19.6) 08/16/17 14:43 Sodium 144 mmol/L (137-145) 08/17/17 06:30 Potassium 3.7 mmol/L (3.6-5.0) 08/17/17 06:30 Chloride 103.8 mmol/L (98-107) 08/17/17 06:30 Carbon Dioxide 17 mmol/L (22-30) L 08/17/17 06:30 Anion Gap 27 mmol/L 08/17/17 06:30 BUN 12 mg/dL (7-17) 08/17/17 06:30 Creatinine 1.3 mg/dL (0.7-1.2) H 08/17/17 06:30 Estimated GFR 49 ml/min 08/17/17 06:30 BUN/Creatinine Ratio 9 % 08/17/17 06:30 Glucose 71 mg/dL (65-100) 08/17/17 06:30 POC Glucose 117 (70-105) H 08/16/17 14:28 Calcium 9.2 mg/dL (8.4-10.2) 08/17/17 06:30 Troponin T 0.010 ng/mL (0.00-0.029) 08/16/17 14:41 Triglycerides 106 mg/dL (2-149) 08/17/17 06:03 Cholesterol 188 mg/dL (50-199) 08/17/17 06:03 LDL Cholesterol Direct 121 mg/dL (50-130) 08/17/17 06:03 HDL Cholesterol 46 mg/dL (40-59) 08/17/17 06:03 Cholesterol/HDL Ratio 4.08 % 08/17/17 06:03 Urine Color Yellow (Yellow) 08/16/17 17:54 Urine Turbidity Clear (Clear) 08/16/17 17:54 Urine pH 5.0 (5.0-7.0) 08/16/17 17:54 Ur Specific [place] 1.016 (1.003-1.030) 08/16/17 17:54 Urine Protein <15 mg/dl mg/dL (Negative) 08/16/17 17:54 Urine Glucose (UA) Neg mg/dL (Negative) 08/16/17 17:54 Urine Ketones Tr mg/dL (Negative) 08/16/17 17:54 Urine Blood Neg (Negative) 08/16/17 17:54 Urine Nitrite Pos (Negative) 08/16/17 17:54 Urine Bilirubin Neg (Negative) 08/16/17 17:54 Urine Urobilinogen < 2.0 mg/dL (<2.0) 08/16/17 17:54 Ur Leukocyte Esterase Sm (Negative) 08/16/17 17:54 Urine WBC (Auto) 10.0 /HPF (0.0-6.0) H 08/16/17 17:54 Urine RBC (Auto) 1.0 /HPF (0.0-6.0) 08/16/17 17:54 U Epithel Cells (Auto) 3.0 /HPF (0-13.0) 08/16/17 17:54 Urine Bacteria (Auto) 2+ /HPF (Negative) 08/16/17 17:54 Hyaline Casts 3 /LPF 08/16/17 17:54 Urine Mucus Few /HPF 08/16/17 17:54
[2017-08-17] MEDS ORDERED: NACL 0.45% 500 ML IV SCH (18:00)
[2017-08-17] MEDS ORDERED: HALFPRIN EC PO SCH (19:00)
[2017-08-17] MEDS ORDERED: NON-FORMULARY (Plavix 75 MG) PO SCH ×2 (19:00→20:00)
[2017-08-17] MEDS ORDERED: ARICEPT PO SCH (22:00)
[2017-08-17] MEDS: ASPIRIN PO SCH (22:55)
[2017-08-17] MEDS: PLAVIX PO SCH (22:55)
[2017-08-17] MEDS: COREG PO SCH (22:55)
[2017-08-18 09:59] LABS: Calcium 8.9 mg/dL (8.4-10.2); Chloride 105.6 mmol/L (98-107); Potassium 3.5 mmol/L (3.6-5.0)
[2017-08-18] MEDS ORDERED: NON-FORMULARY (Plavix 75 MG) PO SCH (10:00)
[2017-08-18] MEDS ORDERED: PEPCID PO SCH (10:00)
[2017-08-18] MEDS ORDERED: HALFPRIN EC PO SCH (10:00)
[2017-08-18] MEDS: COREG PO SCH (10:41)
[2017-08-18] MEDS: ASPIRIN PO SCH (10:41)
[2017-08-18] MEDS: PLAVIX PO SCH (10:41)
[2017-08-18] MEDS: LOVENOX SUB-Q SCH (10:42)
--- NOTE | 2017-08-18 12:29 | Discharge Summary ---
Providers - Providers Date of Admission: 08/16/17 22:27 Date of discharge: 08/18/17 Attending physician: BROCK PAULINO 08/16/17 22:27 Occupational Therapy Evaluate and Treat [CONS] Routine Comment: Reason For Exam: Neuro deficits Physical Therapy Evaluation and Treat [CONS] Routine Comment: Reason For Exam: Neuro deficits 08/17/17 00:09 Consult to Physician [CONS] Routine Consulting Provider: JANETT BROOKS Reason For Exam: tia Notified:: departmental secretary pl call 08/17/17 08:51 Speech Therapy Evaluation and Treat [CONS] Routine Reason For Exam: eval & treat Primary care physician: BROCK SIMMONS Hospitalization Condition: Good Disposition: DC/[place]-06 HOME [facility]ER [facility] - Discharge Diagnoses (1) Acute ischemic stroke Status: Acute Core Measure Documentation - Palliative Care Palliative Care/ Comfort Measures: Not Applicable - Core Measures Any of the following diagnoses?: stroke - Stroke Discharge Requirements Statin for LDL = or >70 mg/dl on DC: Yes Anticoag for atrial fib/atrial flutter: Not Applicable Antithrombotic for ischemic stroke: Yes Exam - Constitutional Vitals: Temp Pulse Resp BP Pulse Ox 98.0 F 66 20 140/60 97 08/18/17 09:08 08/18/17 10:41 08/18/17 10:00 08/18/17 10:41 08/18/17 10:00 Plan Activity: no restrictions Diet: low fat, low cholesterol, low salt, other (Pureed diet,thin liquids,) Additional Instructions: 1.Follow up with PCP in 1 week. 2.Home health Physical therapy. 3.home health Speech therapy Follow up with: BROCK SIMMONS MD [Primary Care Provider] - 3-5 Days
[2017-08-18 12:37] VITALS: BP 134/59
[2017-08-18] MEDS: cefTRIAXone 1 GM in NACL 0.9% 20 ML IV SCH (14:36)
--- NOTE | 2017-08-18 16:53 | Progress Note ---
Assessment and Plan 71 year old female sustained an acute lacunar infarct in the left frontal white matter. She has been started on Plavix in addition to the ASA she has been taking. Plan - continue ASA and Plavix mobilize Subjective Date of service: 08/18/17 Principal diagnosis: lacunar stroke Interval history: The patient is doing well today. Denies headache or pain. No numbness or tingling, no weakness. Objective - Vital Sign Vital Signs - 12hr 08/18/17 08/18/17 08/18/17 05:45 07:22 09:08 Temperature 98.4 F 98.0 F Pulse Rate 68 64 Respiratory 20 Rate Respiratory Rate [Denies Pain] Blood Pressure 132/56 Blood Pressure 140/60 [Right] O2 Sat by Pulse 100 Oximetry 08/18/17 08/18/17 08/18/17 10:00 10:41 12:05 Temperature 98.0 F Pulse Rate 66 64 Respiratory 20 16 Rate Respiratory 20 Rate [Denies Pain] Blood Pressure 140/60 134/59 Blood Pressure [Right] O2 Sat by Pulse 97 99 Oximetry 08/18/17 16:00 Temperature Pulse Rate 88 Respiratory Rate Respiratory Rate [Denies Pain] Blood Pressure Blood Pressure [Right] O2 Sat by Pulse Oximetry - General Apperance Constitutional: comfortable - EENT EENT: PERRL, mucous membranes moist, hearing intact, vision intact - Respiratory Respiratory: lungs clear - Cardiovascular Cardiovascular: regular rate, normal S1, normal S2 Extremities: no peripheral edema bilat, no clubbing, cyanosis, no inflammation - Gastrointestinal Gastrointestinal: soft, non-tender - Neurologic Cranial nerve examination: PERRL, EOMI, V1/V2/V3 grossly intact, face symmetric , tongue midline, intact shoulder shrug Speech examination: intact, other (edentulous, dysarthria) Detailed motor examination: grossly full strength in, full strength in all rajeev Detailed sensory examination: intact - Psychiatric Psychiatric: mood/affect appropriate, cooperative (pronation and supination of left arm improved today.) - Laboratory Findings CBC and BMP: 08/16/17 14:41 08/18/17 09:21 Abnormal Lab Findings: Abnormal Labs 08/16/17 08/16/17 08/16/17 14:28 14:41 14:41 WBC 4.0 L RBC 3.26 L Hgb 9.8 L Hct 29.5 L RDW 15.6 H Lymph # 0.8 L Seg Neutrophils % 72.3 H Potassium Carbon Dioxide 21 L Creatinine 1.5 H Glucose 115 H POC Glucose 117 H Urine WBC (Auto) 08/16/17 08/17/17 08/18/17 17:54 06:30 09:21 WBC RBC Hgb Hct RDW Lymph # Seg Neutrophils % Potassium 3.5 L Carbon Dioxide 17 L 21 L Creatinine 1.3 H Glucose 110 H POC Glucose Urine WBC (Auto) 10.0 H
--- NOTE | 2017-08-21 14:59 | Vascular Lab Report ---
CAROTID DUPLEX STUDY: RIGHT PSVEDV CCA [id number] CCA DIST:[id number] ICA PROX:5714 ICA MID:[id number] ICA DIST:[id number] ECA: 706 VERT: 24 5 LEFT PSVEDV CCA PROX:[id number] CCA DIST:[id number] ICA PROX:7217 ICA MID:[id number] ICA DIST:9936 ECA: 667 VERT: 29 13 REASON FOR EXAM: Stroke. COMMENTS ON THE RIGHT: Doppler frequency analysis is consistent with 16 to 49 percent diameter reduction of the internal carotid artery. Minimal amount of plaque is seen. The common carotid artery is patent. The external carotid artery is patent. The vertebral artery has antegrade flow. COMMENTS ON THE LEFT: Doppler frequency analysis is consistent with 16 to 49 percent diameter reduction of the internal carotid artery. Minimal amount of plaque is seen. The common carotid artery is patent. The external carotid artery is patent. The vertebral artery has antegrade flow. IMPRESSION: Less than 50% diameter reduction in the internal carotid arteries bilaterally.
== END 2017-08-18 18:05 | disposition home or self-care (01) | DRG 64 ==
LOC: ED 13:36 → 4A 22:27
PROVIDERS: ADMIT Internal Medicine; ATTEND Internal Medicine
DX: I63.9 Cerebral infarction, unspecified (principal); N17.0 Acute kidney failure with tubular necrosis; N39.0 Urinary tract infection, site not specified; I10 Essential (primary) hypertension; E78.5 Hyperlipidemia, unspecified; F03.90 Unspecified dementia, unspecified severity, without behavioral disturbance, psychotic disturbance, mood disturbance, and anxiety; M19.90 Unspecified osteoarthritis, unspecified site; I25.10 Atherosclerotic heart disease of native coronary artery without angina pectoris; Z90.710 Acquired absence of both cervix and uterus; Z95.1 Presence of aortocoronary bypass graft; Z82.49 Family history of ischemic heart disease and other diseases of the circulatory system; Z88.8 Allergy status to other drugs, medicaments and biological substances; Z79.82 Long term (current) use of aspirin; Z79.899 Other long term (current) drug therapy; Z82.3 Family history of stroke
CPT/HCPCS: 36415; 70450; 70551; 71010; 80048; 80061; 81001; 82271; 82962; 84484; 85025; 85610; 85670; 85730; 87076; 87086; 87186; 93005; 93010; 93308; 93321; 93325; 93880; A9270-GY; G8978-GP; G8979-GP; G8996-GN; G8997-GN; J0696; J1650